=== PATIENT | female | born 1985 | race African-American/Black ===

== ENCOUNTER 2019-07-06 08:53 | Emergency (ER) | payer OTHER ==
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
[2019-07-06 12:09] VITALS: BP 131/80
== END 2019-07-06 12:08 | disposition home or self-care (01) ==
LOC: ER 08:53
DX: M62.830 Muscle spasm of back (principal); M54.2 Cervicalgia; M54.6 Pain in thoracic spine; M25.519 Pain in unspecified shoulder; V87.7XXA Person injured in collision between other specified motor vehicles (traffic), initial encounter
CPT/HCPCS: 99283

== ENCOUNTER 2019-09-21 06:27 | Emergency (ER) | payer OTHER ==
[2019-09-21 06:37] VITALS: BP 139/82
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
== END 2019-09-21 07:50 | disposition home or self-care (01) ==
LOC: ER 06:27
DX: M54.9 Dorsalgia, unspecified (principal); M25.512 Pain in left shoulder; M79.10 Myalgia, unspecified site; V89.2XXA Person injured in unspecified motor-vehicle accident, traffic, initial encounter; Z88.3 Allergy status to other anti-infective agents
CPT/HCPCS: 99283